=== PATIENT | male | born 1965 ===

== ENCOUNTER 2021-04-27 15:08 | Outpatient (CLI) | payer BC | END 2021-04-27 15:09 | disposition home or self-care (01) | LOC: BICMRI 15:08 | PROVIDERS: ATTEND Orthopaedic Surgery | DX: M75.82 Other shoulder lesions, left shoulder (principal); M75.122 Complete rotator cuff tear or rupture of left shoulder, not specified as traumatic; M85.612 Other cyst of bone, left shoulder ==